=== PATIENT | female | born 1950 | race Caucasian/White ===

== ENCOUNTER → 2017-01-24 | Outpatient (CLI) | payer OTHER ==
[~2017-01-24] MED LIST: ASPI325T32 PO; HYDR-906 PO; NEBI10TA2 PO; THYR60TA PO; TRAM50TA2 PO
--- NOTE | 2017-01-24 14:04 | RADRPT ---
PROCEDURE: XR pelvis/left hip. CLINICAL INDICATION: Hip pain TECHNIQUE: AP pelvis/AP and lateral left hip views performed. COMPARISON: 10/25/2016 FINDINGS: There is a left total hip replacement. There is no evidence of loosening of the prosthesis. There is moderate right hip osteoarthrosis. This is associated with joint space narrowing, subchondr al sclerosis and osteophytosis. There is normal osseous mineralization. No fractures or osseous le sions are identified. The soft tissues are unremarkable. IMPRESSION: Left total hip replacement. Moderate right hip osteoarthrosis. RPTAT: [facility] .Michael Farrell MD, Date Time Electronically viewed and signed by .Michael Farrell MD, on 01/24/2017 14:03 .B/
== END | disposition home or self-care (01) ==
LOC: HKI 13:28
PROVIDERS: ATTEND Orthopaedic Surgery
DX: M17.0 Bilateral primary osteoarthritis of knee (principal); M25.562 Pain in left knee; M25.561 Pain in right knee; M51.36 Other intervertebral disc degeneration, lumbar region; M54.16 Radiculopathy, lumbar region; Z96.642 Presence of left artificial hip joint
CPT/HCPCS: 73502; G0463